=== PATIENT | male | born 1955 | race Caucasian/White ===

== ENCOUNTER 2019-04-22 10:49 | Emergency (ER) | payer MEDICARE, MEDICAID ==
[~2019-04-22] VITALS: Ht 175.3 cm; Wt 89.0 kg
[2019-04-22] MEDS ORDERED: ondansetron 4mg rapidly disintigrating tab PO ONE (11:35)
[2019-04-22] MEDS ORDERED: ketorolac tromethamine 15mg/ml inj. IM ONE (11:50)
[2019-04-22 12:41] LABS: BASOPHILS % (AUTO) 0.3 % (0-1); EOSINOPHILS % (AUTO) 0 % (0-6); HEMATOCRIT 39.7 % (42.0-52.0); HEMOGLOBIN 13.6 g/dl (14.0-17.9); LYMPHOCYTES # (AUTO) 0.4 X10'3 (1.1-4.8); LYMPHOCYTES % (AUTO) 2.2 % (21-51); MEAN CORPUSCULAR HGB CONC 34.2 g/dL (33.0-36.5); MEAN CORPUSCULAR VOLUME 93.6 FL (78-98); MEAN PLATELET VOLUME 8.1 FL (7.4-10.4); MONOCYTES # (AUTO) 1.1 X10'3 (0-0.9); MONOCYTES % (AUTO) 6.2 % (2-12); NEUTROPHILS # (AUTO) 16.6 X10'3 (1.8-7.7); NEUTROPHILS % (AUTO) 91.3 % (42-75); PLATELET COUNT 228 X10'3 (140-440); RED BLOOD COUNT 4.24 X10'6 (4.70-6.10); RED CELL DISTRIBUTION WIDTH 13.3 % (11.5-14.5); WHITE BLOOD COUNT 18.2 X10'3 (4.5-11.0)
[2019-04-22 12:56] LABS: ALANINE AMINOTRANSFERASE 15 U/L (12-78); ALBUMIN 3.1 G/DL (3.4-5.0); ALBUMIN/GLOBULIN RATIO 0.6 (1.1-1.5); ALKALINE PHOSPHATASE 99 IU/L (46-116); ANION GAP 5 (8-16); ASPARTATE AMINO TRANSFERASE 14 U/L (10-37); BILIRUBIN,TOTAL 0.3 MG/DL (0.1-1.0); BLOOD UREA NITROGEN 10 MG/DL (7-18); BUN/CREATININE RATIO 9.3 (5.4-32.0); CALCIUM 9.2 MG/DL (8.5-10.1); CHLORIDE 101 MMOL/L (99-107); CREATININE 1.08 MG/DL (0.60-1.10); GLUCOSE 145 MG/DL (70-104); POTASSIUM 4.4 MMOL/L (3.5-5.1); SODIUM 136 MMOL/L (135-145); TOTAL CARBON DIOXIDE 29.6 MMOL/L (24-32); TOTAL PROTEIN 7.9 G/DL (6.4-8.2); eGFR 69 ML/MIN
[2019-04-22] MEDS ORDERED: ampicillin/sulbac 3gm/NS 100ml 100 ML IV STA (13:34)
[2019-04-22] MEDS ORDERED: normal saline 1000ML IV soln IVB ONE (13:35)
[2019-04-22] MEDS ORDERED: fentaNYL/PF 50MCG/1 ML 2ML syringe IV ONE (13:35)
[2019-04-22] MEDS ORDERED: CefTRIAXone/D5W-Rocephin 1gm 50 ML IV ONE (13:35)
[2019-04-22] MEDS ORDERED: diphenhydrAMINE 50 mg/ml inj IV ONE (13:35)
[2019-04-22] MEDS ORDERED: metoclopramide 5 mg/ml inj IV ONE (13:35)
[2019-04-22] MEDS ORDERED: sulfamethoxazole/trimethoprim DS (800/160mg) tablet PO ONE (13:35)
[2019-04-22 14:43] VITALS: BP 128/67
[2019-04-22] MEDS ORDERED: CEPH500C5 PO (14:56)
[2019-04-22] MEDS ORDERED: SULF1TAB49 PO (14:56)
== END 2019-04-22 15:40 | disposition home or self-care (01) ==
LOC: ER 10:50
DX: R11.2 Nausea with vomiting, unspecified (principal); R51 Headache; H93.8X2 Other specified disorders of left ear; I10 Essential (primary) hypertension; G89.29 Other chronic pain; F12.90 Cannabis use, unspecified, uncomplicated; Z87.891 Personal history of nicotine dependence; Z98.890 Other specified postprocedural states; Z88.5 Allergy status to narcotic agent; Z88.8 Allergy status to other drugs, medicaments and biological substances; Z79.899 Other long term (current) drug therapy
CPT/HCPCS: 36415; 70450; 80053; 83605; 84145; 85025; 85651; 87040; 96365; 96368; 96372; 96375; 99284; J0696; J1200; J1885; J2765; J3010; J7030; J0295

== ENCOUNTER 2021-08-08 11:16 | Emergency (ER) | payer MEDICARE, MEDICAID ==
[~2021-08-08] VITALS: Ht 175.3 cm; Wt 94.5 kg
[2021-08-08] MEDS ORDERED: BUPIVAcaine/PF 7.5mg/ml (0.75%) 10ml vial IJ ONE (12:50)
[2021-08-08 13:42] VITALS: BP 142/89
[2021-08-08] MEDS ORDERED: CYCL-1 PO (14:03)
== END 2021-08-08 14:04 | disposition home or self-care (01) ==
LOC: ER 11:17
DX: M54.2 Cervicalgia (principal); G89.29 Other chronic pain; M54.50 Low back pain, unspecified; G43.909 Migraine, unspecified, not intractable, without status migrainosus; I10 Essential (primary) hypertension; J44.9 Chronic obstructive pulmonary disease, unspecified; F12.90 Cannabis use, unspecified, uncomplicated; Z87.891 Personal history of nicotine dependence; Z88.8 Allergy status to other drugs, medicaments and biological substances; Z79.899 Other long term (current) drug therapy
CPT/HCPCS: 20552; 20553; 99284

== ENCOUNTER 2023-05-28 15:11 | Emergency (ER) | payer MEDICARE, MEDICAID ==
[~2023-05-28] VITALS: Ht 175.3 cm; Wt 93.2 kg
[~2023-05-28 15:11] MED LIST: CYCL-1 PO
[2023-05-28 15:16] VITALS: BP 166/93; PULSE 94; RESP 18; TEMP 98.3; O2SAT 98
[2023-05-28] MEDS ORDERED: ketorolac trometh inj. 60 MG/2 ML VIAL IM ONE (15:45)
[2023-05-28] MEDS: dexamethasone sod phosphate 10mg/ml inj IM STA (16:06)
[2023-05-28] MEDS: ketorolac trometh. 30mg/ml inj. IM ONE (16:07)
[2023-05-28] MEDS: cyclobenzaprine 10mg tablet PO ONE (16:08)
[2023-05-28] MEDS ORDERED: IBUP-1984 PO (16:37)
[2023-05-28] MEDS ORDERED: CYCL-1 PO (16:37)
[2023-05-28] MEDS: morphine 2 MG/ML inj. syringe IM ONE (16:59)
[2023-05-28] MEDS: ondansetron 4mg rapidly disintigrating tab PO ONE (16:59)
== END 2023-05-28 17:00 | disposition home or self-care (01) ==
LOC: ER 15:12
DX: S70.01XA Contusion of right hip, initial encounter (principal); G43.909 Migraine, unspecified, not intractable, without status migrainosus; F12.90 Cannabis use, unspecified, uncomplicated; Z88.5 Allergy status to narcotic agent; Z88.8 Allergy status to other drugs, medicaments and biological substances; Z79.899 Other long term (current) drug therapy; Z79.1 Long term (current) use of non-steroidal anti-inflammatories (NSAID); J44.9 Chronic obstructive pulmonary disease, unspecified; W19.XXXA Unspecified fall, initial encounter; Y93.23 Activity, snow (alpine) (downhill) skiing, snowboarding, sledding, tobogganing and snow tubing; Y92.89 Other specified places as the place of occurrence of the external cause; Y99.8 Other external cause status
CPT/HCPCS: 73502; 96372; 99284; J1100; J1885

== ENCOUNTER 2024-07-15 18:25 | Emergency (ER) | payer OTHER, MEDICARE, MEDICAID ==
[~2024-07-15] VITALS: Ht 172.7 cm; Wt 200.0 kg
--- NOTE | 2024-07-15 19:49 | Physician Documentation ---
History of Present Illness ~ Chief Complaint: Foreign body Stated Complaint: "FISH HOOK IN THUMB" Time Seen by MD: 19:21 OK to notify your PCP?: Yes Primary Medical Doctor: ANGLE Source: patient Mode of Arrival: POV Exam Limitations: no limitations HPI This is a 69-year-old male who comes in complaining of fish hook to the left thumb. This happened while he was cleaning out his garage. Last Tdap is unknown. He is not complaining of any significant pain. There was no active hemorrhaging. Tetanus within 5 years: Yes Medication Reconciliation Allergies: Coded Allergies: acetaminophen (Unverified Allergy, Unknown, 07/15/24) alprazolam (Unverified Allergy, Unknown, 07/15/24) codeine (Verified Allergy, Unknown, 07/15/24) sertraline (Verified Allergy, Unknown, 07/15/24) Scheduled Cyclobenzaprine* (Cyclobenzaprine*), 6 TAB PO Q8H Cyclobenzaprine* (Cyclobenzaprine*), 1 TAB PO Q8H Past Medical History Past Medical History: Migraine, Hypertension, COPD, Chronic Back Pain Past Surgical History: orthopedic surgeries Alcohol Use: Rarely Drug Use: marijuana Lives with: Family Lives In: Home Physical Exam Vital Signs: Temperature: 97.8, Source: Oral, Heart Rate: 89, Respiratory Rate: 18, BP: 127/81, Pulse Oximetry: 96, Weight: 200.000 Pulse Oximetry Reflects: adequate oxygenation General Appearance: alert, WD/WN, no apparent distress Digit To inspection of the left thumb the patient has a fish hook embedded in the skin of the lateral thumb nail fold. No active hemorrhaging. No range of motion deficits of the thumb. Cap refill less than 2 seconds and brisk of the tip of the thumb. Progress Results/Orders Results/Orders Orders - BALAJI RIZZO Laceration/I&D Tray Set Up (07/15/24 19:21) Completed Orders - BALAJI RIZZO Lidocaine 1%/Pf 5ml (Xylocaine-Mpf 1% Vi (07/15/24 19:25) Tetanus/Pertuss/Diph Acell/Pf (Boostrix (07/15/24 19:30) Medications Received in ER Medications (Trade) Dose Ordered Sig/Ori Route PRN Reason Start Time Stop Time Status Last Admin Dose Admin (Xylocaine-MPF 1% vial 5ml) 5 mg ONCE ONCE IM 07/15/24 19:25 07/15/24 19:36 DC 07/15/24 19:50 5 MG (Boostrix vaccine syringe) 0.5 ml ONCE ONCE IMVAC 07/15/24 19:30 07/15/24 19:31 DC 07/15/24 19:51 0.5 ML Vital Signs 07/15/24 18:29 Temp 97.8 Pulse 89 Resp 18 B/P (MAP) 127/81 Pulse Ox 96 Medical Decision Making Findings The patient was gave verbal consent for removal of the fish hook. I cleansed the outer skin with Betadine, anesthetized locally with 1% lidocaine without epinephrine and removed with forceps. The patient tolerated the procedure well. Tdap was updated and a bandage was placed over the puncture wound from the fish hook. Told him to soak his thumb and a bowl of antibacterial soap and water a couple times a day keep an eye in the area for infection. Wound check with the primary care physician in the next couple of days. Return for redness, swelling or any concerns. Additional Comment Fish hook foreign body left thumb. Departure Disposition: HOME / SELF CARE / HOMELESS Impression: Primary Impression: Fishing hook foreign body Condition: Stable Discharge Instructions: [place] Removal Additional Instructions: Soak her thumb and a bowl of antibacterial soap and water couple of times a day and covered with a Band-Aid. Wound check with the primary care physician in the next 2-3 days. Return to the ER for redness, swelling or any concerns. Referrals: NO PRIMARY CARE PROVIDER (PCP) Signature Scribe Signature: No scribe Attestation: The note accurately reflects work and decisions made by me.Balaji LIGHT 07/15/24 20:02 BALAJI RIZZO Jul 15, 2024 19:49
[2024-07-15] MEDS: LIDOcaine 1%/PF 5ML 10 MG/ML VIAL IM ONE (19:50)
[2024-07-15] MEDS: TETanus/Pertussis (Acell)/Diphther VAC/PF (Tdap-Adult) 0.5ml syringe IMVAC ONE (19:51)
[2024-07-15 20:07] VITALS: BP 127/78; PULSE 89; RESP 18; TEMP 98.6; O2SAT 99
== END 2024-07-15 20:08 | disposition home or self-care (01) ==
LOC: ER 18:26
DX: S60.352A Superficial foreign body of left thumb, initial encounter (principal); I10 Essential (primary) hypertension; J44.9 Chronic obstructive pulmonary disease, unspecified; G43.909 Migraine, unspecified, not intractable, without status migrainosus; Z88.5 Allergy status to narcotic agent; Z88.8 Allergy status to other drugs, medicaments and biological substances; W45.8XXA Other foreign body or object entering through skin, initial encounter; Y93.89 Activity, other specified; Y92.89 Other specified places as the place of occurrence of the external cause; Y99.8 Other external cause status
CPT/HCPCS: 90471; 90715; 99284; J3490